=== PATIENT | female | born 1980 | race Caucasian/White ===

== ENCOUNTER 2024-04-23 15:07 | Outpatient (CLI) | payer BC, SELFPAY ==
--- NOTE | ~2024-04-23 | CT_ITS ---
EXAMINATION: CT abdomen pelvis w con DATE: 04/23/2024 15:36 INDICATION: lower flank pain TECHNIQUE: Computed tomography (CT) of the abdomen and pelvis was performed with 100 mL Omnipaque-350 intravenous contrast. Automated exposure control and iterative reconstruction technique were employe d. The dose-length product was 603.30 mGy-cm. COMPARISON: None. FINDINGS: Lower thorax: Mild dependent atelectasis. Liver: Subcentimeter right lobe hypodensity, too small to characterize, likely cyst or hemangioma. 9 mm simple cyst in the inferior right liver lobe. Biliary/Gallbladder: Gallbladder is normal. No bile duct dilation. Pancreas: No mass or duct dilation. Spleen: Normal. Adrenals:No mass. Kidneys: No suspicious mass, obstructing stone, or hydronephrosis. 2 mm nonobstructing right midpole calcification. Right mid/lower pole hypodensities, too small to characterize but most likely represen t cysts. GI tract: Mild distal esophageal and gastric wall edema No small or large bowel dilation. Tiny append icolith in an otherwise normal-appearing appendix Mesentery/Peritoneum: No ascites, mass, or free air. Retroperitoneum: No mass. Pelvis: Partially distended urinary bladder, mild bladder wall stranding. Normal uterus. Normal left ovary. 1.8 cm indeterminate density right ovarian hypodensity. Prominent pelvic veins, particularly o n the left. Soft Tissues: Small fat-containing uncomplicated helical hernia Bones: No acute osseous finding. IMPRESSION: Mild esophagitis/gastritis. Nonobstructive right nephrolithiasis. No CT evidence of obstructive uropathy. Mild bladder wall stranding, may represent cystitis, correlate with urinalysis. Nonsimple 1.8 cm right ovarian hypodensity, likely proteinaceous or hemorrhagic cyst, consider pelvic ultrasound for further evaluation. Prominent pelvic veins, greater on the left as can be seen with pelvic congestion. Correlate clinical ly for persistent dull pelvic pain lasting > 6 months, dysmenorrhea, dyspareunia, postcoital ache, an d urinary symptoms. Reviewed, dictated and finalized at location K. IMPRESSION: Mild esophagitis/gastritis. Nonobstructive right nephrolithiasis. No CT evidence of obstructive uropathy. Mild bladder wall stranding, may represent cystitis, correlate with urinalysis. Nonsimple 1.8 cm right ovarian hypodensity, likely proteinaceous or hemorrhagic cyst, consider pelvic ultrasound for further evaluation. Prominent pelvic veins, greater on the left as can be seen with pelvic congesti on. Correlate clinically for persistent dull pelvic pain lasting > 6 months, dy smenorrhea, dyspareunia, postcoital ache, and urinary symptoms.
== END 2024-04-23 15:08 | disposition home or self-care (01) ==
LOC: ANHIMG 15:14
PROVIDERS: PCP Internal Medicine; Visit Provider Obstetrics & Gynecology
DX: N20.0 Calculus of kidney (principal); R93.89 Abnormal findings on diagnostic imaging of other specified body structures; R10.30 Lower abdominal pain, unspecified
CPT/HCPCS: 74177; Q9967

== ENCOUNTER 2024-10-22 14:54 | Outpatient (CLI) | payer BC, SELFPAY ==
--- NOTE | ~2024-10-22 | MM_ITS ---
EXAMINATION: MM screening lynds[place] BI w [place] HISTORY: Screening TECHNIQUE: Craniocaudal and mediolateral oblique 3-D tomosynthesis images were obtained and synthetic 2-D images were generated. CAD analysis was submitted and interpreted. COMPARISON: 06/12/2012 BREAST PARENCHYMAL COMPOSITION: There is a focal asymmetry laterally in the left, best seen on CC vie w. Dense: The breasts are heterogeneously dense, which may obscure small masses FINDINGS: There is a focal asymmetry laterally in the left, best seen on CC view. There is asymmetry in the upper outer quadrant of the right breast, middle-posterior depth. There are no suspicious calc ifications or architectural distortion. IMPRESSION: 1. Bilateral breast asymmetries. 2. Additional mammographic views and possible breast ultrasound are recommended. BI-RADS Category 0: Incomplete: Needs additional imaging evaluation. Reviewed, dictated and finalized at location B. IMPRESSION: 1. Bilateral breast asymmetries. 2. Additional mammographic views and possible breast ultrasound are recommended . BI-RADS Category 0: Incomplete: Needs additional imaging evaluation.
--- OUTSIDE RECORDS SUMMARY | 2024-10-22 16:50 | XMS_ITS | Clinical Summary ---
Author Organization [facility] Address [address] [place] [address] Phone Care Team Providers Care Polymer Tester Name Role Phone BAN BAKER MD Primary Care Provider LEANA PEÑA DO Unavailable [phone] Reason for Visit and Chief Complaint The Chief Complaint is: SORE THROAT, SOB, AND CHILLS SINCE LAST NIGHT Plan of Treatment - The options include close observation - Last Documented On 08/28/2020 1:13PM ; [facility] - Continue current medication - Last Documented On 08/28/2020 1:13PM ; [facility] Rapid COVID testing performed today and was negative. Patient advised that they may return to work/school when fever free for 24 hours and symptoms have improved. Call with development of additional or worsening symptoms. Go to ED with severe respiratory symptoms. - Last Documented On 08/28/2020 1:13PM ; [facility] Assessments Includes: Assessments from this encounter No Assessments Recorded Medical Equipment - Implanted Devices Includes: Current Devices No Medical Equipment Recorded Medications Administered Includes: Administered Medications from this encounter No Administered Medications Recorded Vital Signs Includes: Vital Signs from this encounter Vital Name 08/28/2020 11:54A Pulse Rate-Sitting (bpm) 77 Temp-Oral (F) 98.2 Oxygen Saturation (%) 96 Last Documented: On 08/28/2020 11:54A M ; [facility] Results Includes: Results discussed during this encounter Group A strep [facility] Ordered by MELONIE GARAY on 08/08 Collected: Reported: 08/28/2020 11:58 Last Documented On 11:59AM ; [facility] Reviewed on 08/28/2020; All test results are final unless otherwise noted. Rapid Strep NEG N (Normal) Last Documented On 1 11:59AM ; [facility] LOT # AND EXP. DATE [id number] 06/04/2022 N (Normal) Last Documented On 1 11:59AM ; [facility] INT. QC ACCEPTABLE? N (Normal) Last Documented On 1 11:59AM ; [facility] Rapid [facility] Test [facility] Ordered by MELONIE GARAY on 08/08 Collected: Reported: 08/28/2020 12:03 Last Documented On 1 12:03PM ; [facility] Reviewed on 08/28/2020; All test results are final unless otherwise noted. Rapid COVId NEG N (Normal) Last Documented On 1 12:03PM ; [facility] Int. QC Acceptable N (Normal) Last Documented On 1 12:03PM ; [facility] Lot # and Exp. Date [id number] 11/09/2020 N (Normal) Last Documented On 1 12:03PM ; [facility] History of Present Illness Includes: History of Present Illness from this encounter HPI JON MUSA is a 40 year old female. - Allergy list reviewed - Medication reconciliation performed - Chills - Not feeling tired - Not feeling poorly (malaise) - No fever - No headache - No sinus pain - No swollen glands in the neck - Sore throat - No ear symptoms - No earache - No nasal discharge - No postnasal drip - No nasal passage blockage (stuffiness) - No sneezing - No chest pain or discomfort - Not feeling congested in the chest - No shortness of breath - No cough - Not coughing up sputum - No wheezing - Normal appetite - No nausea - No vomiting - No abdominal pain - No diarrhea - No myalgias - No anosmia - No taste disturbances - Not unpleasantly altered - No skin symptoms Jon is a 40-year-old female patient that presented to the respiratory clinic for sore throat and chills that started last night. She reports chronic shortness of breath due to history of asthma. No known exposure to COVID. She has not tried any OTC medications for symptoms. Social History No Social History Recorded - Smoking Status Unknown Procedures and Surgical History Includes: Procedures from this encounter Procedures Code Diagnosis Performing Provider Service Location Service Date the options include antihistamines as needed per product instructions Last Documented On 1 1:07PM ; [facility] Pt to use OTC fever/pain product as need ed per product instruction.~ Last Documented On 1 1:07PM ; [facility] Discussed with family that c urrent strep testing is NEGATIVE. Pt /family with be notified if further testing reveals positive strep pharyngitis. Discussed with pt /family the etiology, natural course, possible complications, and treatment options for pharyngitis. Recommended OTC therapy with pain/fever control products, topical products (lozenges/sprays/gargles) as needed per optical lens manufacturing tech's recommendation. Recommended for pt/ family to call/return to office with follow up if pt persits with greater than 5 days of symptoms, worsens, or as otherwise directed. Discussed with pt / family that is pt contagious until fever free for at least 24 hours. Return to activities when pt feels well and fever free for 24 hours. Observe pt contacts for signs/symptoms of illness Last Documented On 1 1:07PM ; [facility] plan of care reviewed and agreed to Last Documented On 1 1:07PM ; [facility] patient to call if symptoms worsen or not improved to update patient's status as needed Last Documented On 1 1:07PM ; [facility] review of medications documented 1160F Last Documented On 1 11:54AM ; [facility] Medical History Includes: Medical History addressed during this encounter Description Last Updated No exposure to a contagious disease 08/08 Last Documented On 1 1:13PM ; [facility] Not taking OTC medications 08/28/2020 Last Documented On 1 1:13PM ; [facility] Family History Includes: Family History addressed during this encounter No Family History Recorded Review of Systems Includes: Review of Systems from this encounter Systemic: No systemic symptoms and no fever. Head: No headache. Otolaryngeal: No earache, no nasal discharge, and no sore throat. Cardiovascular: No chest pain or discomfort. Pulmonary: No cough and no wheezing. Gastrointestinal: No vomiting, no abdominal pain, and no diarrhea. Skin: No skin lesions. Mental Status Includes: Mental Status from this encounter No Mental Status Recorded Functional Status Includes: Functional Status from this encounter No Functional Status Recorded Physical Exam Includes: Physical Exam from this encounter Encounters Encounter Provider Location Date Check-In Time Check-Out Time Diagnosis SICK VISIT MELONIE KYLEP-C [facility] 1 11:30AM 12:03PM Insurance Includes: Active Insurance Policies Plan Name Member ID Group # Subscriber Relationship Effect mckenzie Dates 1 - [facility] [id number] HIEN MUSA Self Clinical Notes Includes: Clinical Notes from this encounter No Clinical Notes Recorded
--- OUTSIDE RECORDS SUMMARY | 2024-10-22 16:50 | XMS_ITS ---
Author Organization [facility] Address [address] [place] [address] Phone Care Team Providers Care Auto Parts Delivery Driver Name Role Phone BAN BAKER MD Primary Care Provider LEANA PEÑA DO [phone] Plan of Treatment Findings Encounter Date Continue current medication SICK VISIT with ZACKERY CAIN-Maximiliano 08/28/2020 Last Documented On 1 1:13PM ; [facility] The options include close observation SI CK VISIT with MELONIE CAIN-Maximiliano 08/28/2020 Last Documented On 1 1:13PM ; [facility] Assessments Includes: Assessments for all patient encounters No Assessments Recorded Medical Equipment - Implanted Devices Includes: Current and historical Devices No Medical Equipment Recorded Medications Administered Includes: Administered Medications in patient's chart No Administered Medications Recorded Results Includes: Results from 10/23/2023 through 10/22/2024 No Results Recorded For Specified Dates History of Present Illness History of Present Illness not supported for this document type No History of Present Illness Recorded Social History No Social History Recorded - Smoking Status Unknown Medical History Includes: Medical History in patient's chart Description Last Updated No exposure to a contagious disease 08/08 Last Documented On 1 1:13PM ; [facility] Not taking OTC medications 08/28/2020 Last Documented On 1 1:13PM ; [facility] Family History Includes: Family History in patient's chart No Family History Recorded Review of Systems Review of Systems not supported for this document type No Review of Systems Recorded Mental Status No Mental Status Recorded Functional Status No Functional Status Recorded Physical Exam Physical Exam not supported for this document type No Physical Exam Recorded Insurance Includes: Active Insurance Policies Plan Name Member ID Group # Subscriber Relationship Effect mckenzie Dates 1 - [facility] [id number] 1 [id number] HIEN Coats Clinical Notes Includes: Signed Clinical Notes starting from 08/26/2022 No Clinical Notes Recorded
--- OUTSIDE RECORDS SUMMARY | 2024-10-22 16:50 | XMS_ITS | Clinical Summary ---
Author Organization [facility] Address [address] [place] [address] Care Team Providers Care Wagon Driver Salesperson Name Role Phone Ho Soni MD Primary Care Provider [phone] Allergies Active Allergy Reactions Criticality Noted Date Comments Codeine Dizziness,Nausea only Low Medications acetaminophen (TYLENOL) 325 mg tablet Take 2 tablets (650 mg total) by mouth every 6 (six) hours as needed for pain Active ketorolac (TORADOL) 10 mg tablet Take 1 tablet (10 mg total) by mouth every 6 (six) hours as needed for pain 12 tablet 4 Active oxyCODONE (ROXICODONE) 5 mg immediate release tabletIndicati ons:Pain Take 1 tablet (5 mg total) by mouth every 6 (six) hours as needed for pain 20 tablet 4 Active senna-docusate (PERICOLACE) 8.6-50 mg Take 1 tablet by mouth 2 (two) times a day as needed for constipation 30 tablet 4 Active ondansetron (ZOFRAN) 4 mg tablet Take 1 tablet (4 mg total) by mouth every 8 (eight) hours as needed for nausea or vomiting 15 tablet 4 Active methylPREDNISo lone (MEDROL DOSEPACK) 4 mg Dosepack Use as directed by package instructions 21 tablet 5 Active methylPREDNISo lone (MEDROL DOSEPACK) 4 mg Dosepack Use as directed by package instructions 21 tablet 5 025 Discontin ued(Reord er) Active Problems Problem Noted Date Diagnosed Date Recurrent dislocation of left shoulder Myasthenia gravis 11/17/2011 Encounters Date Type Department Care Team Description 10/14/2024 1:15 PM CDT Office Visit [facility] [address] [place] [address] [facility] [address] [place] [address] [place] [address] Cony Alas MD Instability of left shoulder joint (Primary Dx); Status post orthopedic surgery, follow-up exam; Recurrent dislocation of left shoulder 10/14/2024 12:45 PM CDT - 10/14/2024 11:59 PM CDT Hospital Encounter [facility] [address] [place] [address] Status post orthopedic surgery, follow-up exam Discharge Disposition: Discharge to home or self care 09/18/2024 Telephone [facility] [address] [place] [address] [facility] [place] [address] [place] [address] Cony Alas MD 09/02/2024 11:45 AM EXTRUDER Office Visit [facility] [address] [place] [address] [facility] [place] [address] [place] [address] Cony Alas MD Instability of left shoulder joint (Primary Dx); Status post orthopedic surgery, follow-up exam 09/02/2024 11:30 AM EXTRUDER - 09/02/2024 11:59 PM EXTRUDER Hospital Encounter [facility] ([facility] [address] [place] [address] Status post orthopedic surgery, follow-up exam Discharge Disposition: Discharge to home or self care 07/29/2024 9:30 AM EXTRUDER Office Visit [facility] [address] [place] [address] [facility] [place] [address] [place] [address] Cony Alas MD Recurrent dislocation of left shoulder (Primary Dx); Instability of left shoulder joint; Status post orthopedic surgery, follow-up exam 07/29/2024 8:45 AM EXTRUDER - 07/29/2024 11:59 PM EXTRUDER Hospital Encounter [facility] [address] [place] [address] Status post orthopedic surgery, follow-up exam Discharge Disposition: Discharge to home or self care from Last 3 Months Surgical History Surgery Date Site/Laterality Comments THYMECTOMY 08/07/1995 - 08/06/1996 Thymectomy - (Added by KRYSTINA Conv) BREAST LUMPECTOMY Left benign CERVICAL BIOPSY W/ LOOP ELEC TRODE EXCISION COLONOSCOPY ESOPHAGOGASTRODUODENOSCOPY Medical History Medical History Date Comments Personal history of other di seases of the nervous system and sense organs History of myasthe jimena gravis - (Added by KRYSTINA Conv) Thyrotoxicosis without thyroid storm Hyperthyroidism - (Added by KRYSTINA Conv) Shoulder dislocation Postoperative delirium states wa kes up freaking out from all surgeries PONV (postoperative nausea and vomiting) nausea Myasthenia gravis (HCC) Asthma rare, well contr olled Family History Medical History Relation Name Comments Anesthesia problems Neg Hx Social History Tobacco Use Types Packs/Day Years Used Date Smoking Tobacco: Former Cigarettes 0.5 8 1 996 - 2003 Smokeless Tobacco: Never Tobacco Cessation:Counseling Given: Not Answered AUDIT-C Answer Date Recorded Q1: How often do you have a drink containing alc ohol? Monthly or less 06/27/2024 Q2: How many drinks containi ng alcohol do you have on a typical day when you are drinking? 1 or 2 06/27/2024 Q3: How often do you have si x or more drinks on one occasion? Never 06/27/2024 Personal Safety Answer Date Recorded Have you ever been in or are you currently in a harmful physical or emotional relationship or is someone making you feel afraid or unsafe? Denies 07/11/2024 Comments No Sex and Gender Information Value Date Recorded Sex Assigned at Not on file Legal Sex Female 2:34 AM EXTRUDER Gender Identity Female 06/04/2024 11:08 AM CDT Sexual Orientation Straight 06/04/2024 11 :08 AM CDT Obstetrics History Last Filed Vital Signs Vital Sign Reading Time Taken Comments Blood Pressure 103/63 07/11/2024 2:15 PM EXTRUDER Pulse 65 07/11/2024 2:20 PM EXTRUDER Temperature 36 C (96.8 F) 07/11/2024 1:13 PM EXTRUDER Respiratory Rate 18 07/11/2024 2:20 PM EXTRUDER Oxygen Saturation 94% 07/11/2024 2:20 PM EXTRUDER Inhaled Oxygen Concentration - - Weight 78.9 kg (173 lb 14.4 oz) 07/11/2024 9:10 AM EXTRUDER Height 157.5 cm (5' 2 ) 07/11/2024 9:10 AM EXTRUDER Body Mass Index 31.81 07/11/2024 9:10 AM EXTRUDER Plan of Treatment Health Maintenance Due Date Last Done Comments Breast Cancer Screening-Mammogram 1978 Cervical Cancer Screening 1978 Colon Cancer Screening-Colonoscopy 1978 Depression Screening 1978 Hepatitis C Screening 1978 DTaP/Tdap/Td Vaccine (1 - Tdap) 1989 Hepatitis B Screening 1996 Regular Well Visit/Exam 18-64 1996 Influenza Vaccine (#1) 2024 HPV Vaccines Aged Out No longer eligi ble based on patient's age to complete this topic Pneumococcal vaccine <65 Aged Out No longer eligible based on patient's age to complete this topic Medical Devices Implanted Type Area Activities Therapist Device Identifier Shelf Expiration Date Model / Serial / Lot [employer] Low Profile Screws 4mm 36mm Cannulated Long Thread Screw Bone [id number] - [id number] Implanted:Qty: 1 on 07/11/2024 by Cony Alas MD at [facility] Left: Shoulder [employer] [id number] / / [employer] Low Profile Screws 4mm 36mm Cannulated Long Thread Screw Bone [id number] - [id number] Implanted:Qty: 1 on 07/11/2024 by Cony Alas MD at [facility] Left: Shoulder [employer] [id number] / / Procedures Procedure Name Priority Date/Time Associated Diagnosis Comments XR SHOULDER LEFT 2 OR MORE VIEWS Schedule Routine, Read Routine (OP Routine) 10/14/2024 1:06 PM CDT Status post orthopedic surgery, follow-up exam XR SHOULDER LEFT 2 OR MORE VIEWS Schedule Routine, Read Routine (OP Routine) 09/02/2024 12:09 PM EXTRUDER Status post orthopedic surgery, follow-up exam XR SHOULDER LEFT 2 OR MORE VIEWS Schedule Routine, Read Routine (OP Routine) 07/29/2024 9:03 AM EXTRUDER Status post orthopedic surgery, follow-up exam from Last 3 Months Results * XR Shoulder Left 2 or More Views (10/14/2024 1:06 PM CDT) Anatomical Region Laterality Modality Upper Extremities, Shoulder Left Comp uted Radiography 10/14/2024 1:09 PM CDT Impressions 10/14/2024 1:09 PM CDT 1. Unchanged, internally fixated anterior left glenoid augmentation. Electronically signed by: Vitor Dewitt M.D. Narrative 10/14/2024 1:09 PM CDT EXAMINATION: XR SHOULDER LEFT 2 OR MORE VIEWS HISTORY: Left shoulder instability s/p Latarjet FINDINGS: 2 view examination of the left shoulder is compared with a study dated 09/02/2024. There is no change in an internally fixated anterior glenoid augmentation using coracoid transfer. This is stabilized with 2 lag screws. Glenohumeral and acromioclavicular joint spaces and alignment are normal. Procedure Note Vitor Dewitt MD - 10/14/2024 EXAMINATION: XR SHOULDER LEFT 2 OR MORE VIEWS HISTORY: Left shoulder instability s/p Latarjet FINDINGS: 2 view examination of the left shoulder is compared with a study dated 09/02/2024. There is no change in an internally fixated anterior glenoid augmentation using coracoid transfer. This is stabilized with 2 lag screws. Glenohumeral and acromioclavicular joint spaces and alignment are normal. IMPRESSION: 1. Unchanged, internally fixated anterior left glenoid augmentation. Electronically signed by: Vitor Dewitt M.D. Cony Alas MD IM XR PROCEDURES Fin al Result * XR Shoulder Left 2 or More Views (09/02/2024 12:09 PM EXTRUDER) Anatomical Region Laterality Modality Upper Extremities, Shoulder Left Comp uted Radiography 09/02/2024 12:1 7 PM EXTRUDER Impressions 09/02/2024 12:17 PM EXTRUDER Healing, instrumented left anteroinferior glenoid augmentation with coracoid transfer. Electronically signed by: Mina Mckeon M.D. Narrative 09/02/2024 12:17 PM EXTRUDER EXAMINATION: XR SHOULDER LEFT 2 OR MORE VIEWS HISTORY: 07/29/2024 COMPARISON: 07/29/2024 FINDINGS: Again seen is an instrumented left Latarjet coracoid transfer, with increased sclerosis along the base suggestive of healing changes. Instrumentation is intact and unchanged in position. Acromioclavicular and glenohumeral joint spaces are preserved. Procedure Note Mina Mckeon MD - 09/02/2024 EXAMINATION: XR SHOULDER LEFT 2 OR MORE VIEWS HISTORY: 07/29/2024 COMPARISON: 07/29/2024 FINDINGS: Again seen is an instrumented left Latarjet coracoid transfer, with increased sclerosis along the base suggestive of healing changes. Instrumentation is intact and unchanged in position. Acromioclavicular and glenohumeral joint spaces are preserved. IMPRESSION: Healing, instrumented left anteroinferior glenoid augmentation with coracoid transfer. Electronically signed by: Mina Mckeon M.D. Cony Alas MD IMG XR PROCEDURES Fin al Result * XR Shoulder Left 2 or More Views (07/29/2024 9:03 AM EXTRUDER) Anatomical Region Laterality Modality Upper Extremities, Shoulder Left Comp uted Radiography 07/29/2024 9:09 AM EXTRUDER Impressions 07/29/2024 9:09 AM EXTRUDER Unchanged left anteroinferior glenoid augmentation. Electronically signed by: Mina Mckeon M.D. Narrative 07/29/2024 9:09 AM EXTRUDER EXAMINATION: XR SHOULDER LEFT 2 OR MORE VIEWS HISTORY: Pre-Surgery or Post-Surgery Health Examination COMPARISON: 07/11/2024 FINDINGS: Postsurgical changes are again seen from left anteroinferior glenoid augmentation with coracoid transfer transfixed by 2 intact compression screws. Soft tissue gas has resolved. There is no evidence of acute fracture. Mild left acromioclavicular osteoarthritis. Glenohumeral joint space is preserved. Procedure Note Mina Mckeon MD - 07/29/2024 EXAMINATION: XR SHOULDER LEFT 2 OR MORE VIEWS HISTORY: Pre-Surgery or Post-Surgery Health Examination COMPARISON: 07/11/2024 FINDINGS: Postsurgical changes are again seen from left anteroinferior glenoid augmentation with coracoid transfer transfixed by 2 intact compression screws. Soft tissue gas has resolved. There is no evidence of acute fracture. Mild left acromioclavicular osteoarthritis. Glenohumeral joint space is preserved. IMPRESSION: Unchanged left anteroinferior glenoid augmentation. Electronically signed by: Mina Mckeon M.D. Cony Alas MD IMG XR PROCEDURES Fin al Result from Last 3 Months Insurance [facility] OOS Care Teams Wagon Driver Salesperson Relationship Specialty Start Date End Date Ho Soni MD PCP - General Internal Medicine 10/01/18
--- OUTSIDE RECORDS SUMMARY | 2024-10-22 16:51 | XMS_ITS | Referral Summary ---
Author Organization [facility] Address [address] [place] [id number] Care Team Providers Care Causticiser Name Role Phone Ho Soni MD Primary Care Provider [phone] Encounters Date Type Department Care Team Description 10/14/2024 12:45 PM CDT - 10/14/2024 11:59 PM CDT Hospital Encounter [facility] ([facility]) [address] [place] [id number] Status post orthopedic surgery, follow-up exam Discharge Disposition: Discharge to home or self care 10/14/2024 1:15 PM CDT Office Visit [facility] Orth[facility] [address] [place] [address] [address] [place] [address] [place] [address] Cony Alas MD Instability of left shoulder joint (Primary Dx); Status post orthopedic surgery, follow-up exam; Recurrent dislocation of left shoulder 09/18/2024 Telephone [facility] [address] [place] [address] 12[address] [place] [address] [place] [address] Cony Alas MD 09/02/2024 11:30 AM SENIOR BOOKKEEPER - 09/02/2024 11:59 PM SENIOR BOOKKEEPER Hospital Encounter [facility] ([facility]) [address] [place] [id number] Status post orthopedic surgery, follow-up exam Discharge Disposition: Discharge to home or self care 09/02/2024 11:45 AM SENIOR BOOKKEEPER Office Visit [facility] Surgery [address] [place] [address] 12th [place] [address] [place] [address] Cony Alas MD Instability of left shoulder joint (Primary Dx); Status post orthopedic surgery, follow-up exam 07/29/2024 8:45 AM SENIOR BOOKKEEPER - 07/29/2024 11:59 PM SENIOR BOOKKEEPER Hospital Encounter [facility] [address] [place] [address] Status post orthopedic surgery, follow-up exam Discharge Disposition: Discharge to home or self care 07/29/2024 9:30 AM SENIOR BOOKKEEPER Office Visit [facility] [address] [facility] [address]th [place] [address] [place] [address] Cony Alas MD Recurrent dislocation of left shoulder (Primary Dx); Instability of left shoulder joint; Status post orthopedic surgery, follow-up exam from Last 3 Months Allergies Active Allergy Reactions Criticality Noted Date [...] directed by package instructions 21 tablet 5 03/10/2 025 Discontin ued(Reord er) Active Problems Problem Noted Date Diagnosed Date Recurrent dislocation of left shoulder Myasthenia gravis 11/17/2011 Social History Tobacco Use Types Packs/Day Years [...] on file Legal Sex Female 2:34 AM SENIOR BOOKKEEPER Gender Identity Female 06/04/2024 11:08 AM CDT Sexual Orientation Straight 06/04/2024 11 :08 AM CDT Last Filed Vital Signs Vital Sign Reading Time Taken Comments Blood Pressure 103/63 07/11/2024 2:15 PM SENIOR BOOKKEEPER Pulse 65 07/11/2024 2:20 PM SENIOR BOOKKEEPER Temperature 36 C (96.8 F) 07/11/2024 1:13 PM SENIOR BOOKKEEPER Respiratory Rate 18 07/11/2024 2:20 PM SENIOR BOOKKEEPER Oxygen Saturation 94% 07/11/2024 2:20 PM SENIOR BOOKKEEPER Inhaled Oxygen Concentration - - Weight 78.9 kg (173 lb 14.4 oz) 07/11/2024 9:10 AM SENIOR BOOKKEEPER Height 157.5 cm (5' 2 ) 07/11/2024 9:10 AM SENIOR BOOKKEEPER Body Mass Index 31.81 07/11/2024 9:10 AM SENIOR BOOKKEEPER Plan of Treatment Not on file Medical Devices Implanted Type Area Refrigerator Repairman Device Identifier Shelf Expiration Date Model / Serial / Lot [employer] Low Profile Screws 4mm 36mm Cannulated Long Thread Screw Bone [id number] - [id number] Implanted:Qty: 1 on 07/11/2024 by Cony Alas MD at [facility] Left: Shoulder [employer] [id number]- 36 / / [employer] Low Profile Screws 4mm 36mm Cannulated Long Thread Screw Bone [id number] - [id number] Implanted:Qty: 1 on 07/11/2024 by Cony Alas MD at [facility] Left: Shoulder [employer] [id number] 36 / / Procedures Procedure Name Priority Date/Time Associated Diagnosis Comments XR SHOULDER LEFT 2 OR MORE VIEWS Schedule Routine, Read Routine (OP Routine) 10/14/2024 1:06 PM CDT Status post orthopedic surgery, follow-up exam XR SHOULDER LEFT 2 OR MORE VIEWS Schedule Routine, Read Routine (OP Routine) 09/02/2024 12:09 PM SENIOR BOOKKEEPER Status post orthopedic surgery, follow-up exam XR SHOULDER LEFT 2 OR MORE VIEWS Schedule Routine, Read Routine (OP Routine) 07/29/2024 9:03 AM SENIOR BOOKKEEPER Status post orthopedic surgery, follow-up exam from [...] by: Vitor Dewitt M.D. Cony Alas MD IMG XR PROCEDURES Fin al Result * XR Shoulder Left 2 or More Views (09/02/2024 12:09 PM SENIOR BOOKKEEPER) Anatomical Region Laterality Modality Upper Extremities, Shoulder Left Comp uted Radiography 09/02/2024 12:1 7 PM SENIOR BOOKKEEPER Impressions 09/02/2024 12:17 PM SENIOR BOOKKEEPER Healing, instrumented left anteroinferior glenoid augmentation with coracoid transfer. Electronically signed by: Mina Mckeon M.D. Narrative 09/02/2024 12:17 PM SENIOR BOOKKEEPER EXAMINATION: XR SHOULDER LEFT 2 OR MORE [...] by: Mina Mckeon M.D. Cony Alas MD G XR PROCEDURES Fin al Result * XR Shoulder Left 2 or More Views (07/29/2024 9:03 AM SENIOR BOOKKEEPER) Anatomical Region Laterality Modality Upper Extremities, Shoulder Left Comp uted Radiography 07/29/2024 9:09 AM SENIOR BOOKKEEPER Impressions 07/29/2024 9:09 AM SENIOR BOOKKEEPER Unchanged left anteroinferior glenoid augmentation. Electronically signed by: Mina Mckeon M.D. Narrative 07/29/2024 9:09 AM SENIOR BOOKKEEPER EXAMINATION: XR SHOULDER LEFT 2 OR MORE [...] al Result from Last 3 Months Insurance [employer] OOS [employer] ACCESS [employer] O[employer] Care Teams Causticiser Relationship Specialty Start Date End Date Ho Soni MD PCP - General Internal Medicine 10/01/18
--- OUTSIDE RECORDS SUMMARY | 2024-10-22 16:51 | XMS_ITS | Data Portability ---
Author Organization [facility] Address [address] [place] [address] Care Team Providers Care Inward Toll Operator Name Role Phone BAN BAKER Primary Care Provider [phone] Assessment Encounter Date Assessment Date Assessment LastModified by Organization Details LastModified Time 08/11/2021 08/11/2021 Annual gynecological exam performed. Patient will come back in a year unless there are new symptoms. Not available 08/11/2021 13:48:52 04/18/2024 04/18/2024 Annual gynecological exam performed. Patient will come back in a year unless there are new symptoms. [email or web address] Not available 04/18/2024 17:04:36 Plan of Treatment Reminders Order Date Submit Date Provider Last Modified By Organization Details Last Modified Time Details Appointments None recorded. Lab CBC w/ auto diff 2023 024 [facility] (Lab), [address], [place], [address], 4 12:29:49 CMP, serum or plasma 2023 024 [facility] (Lab), [address] [place], [address], 4 12:29:50 lipid panel, blood 2023 024 [facility] (Lab), [address] [place], [address], 4 12:29:49 TSH, serum or plasma 2023 024 [facility] (Lab), [address], [place], [address], 4 12:29:50 25-hydroxyv itamin D2 + 25-hydroxyv itamin D3, QN, serum or plasma 2023 024 [facility] (Lab), [address], [place], [address], 4 12:29:51 test, urine [address], [address], [address], [place], [address], 2 16:32:50 CBC w/ auto diff 2021 022 [facility] (Lab), [address], [place], [address], 2 03:16:59 lipid panel, blood 2021 022 [facility] (Lab), [address], [place], [address], 2 03:17:00 CMP, serum or plasma 2021 022 [facility] (Lab), [address], [place], [address], 2 03:17:01 HbA1c (hemoglobin A1c), blood 2021 022 [facility] (Lab), [address] [place], [address], 2 03:17:02 vitamin D, 25-hydroxy, total, serum 2021 022 [facility] (Lab), [address] [place], [address], 2 03:17:04 TSH, serum or plasma 2021 022 [facility] (Lab), [address], [place], [address], 2 03:17:03 Referral None recorded. Procedures None recorded. Surgeries None recorded. Imaging MAMMO, screening, digital, bilateral [address] [facility], [address], [facility], [place], [address], 2 16:32:51 Medication Orders Bactrim DS 800 mg-160 mg tablet 2023 024 [email or web address] [id number], [address], [place], [address], 4 18:07:17 Slynd 4 mg (28) tablet 2021 022 [email or web address] [id number], [address], [place], [address], 4 17:05:53 Slynd 4 mg (28) tablet 2021 022 [email or web address] [id number], [address], [place], [address], 2 16:32:50 triamcinolo ne acetonide 0.1 % topical ointment 2021 022 [id number], [address], [place], [address], 2 14:23:31 Patient TargetsNo targets recorded. Patient InstructionsNo instructions recorded. Reason for Referral None Reported. Results Created Date Observation Date Name Description Value Unit Range Abnormal Flag Note LastModifiedBy Organization Detail LastModifiedTime 08/11/19 22 08/11/2021 CBC W/DIF F WBC 4.8 10'3/ uL 3.6-10 .2 Not Available [facility] (Lab) [address], [place], [address], 08/12/2021 03:16:59 08/11/19 22 08/11/2021 CBC W/DIF F RBC 4.90 10'6/ uL (based on docume nted legal sex) 4.10-5 .30 Not Available [facility] (Lab) [address], [place], [address], 08/12/2021 03:16:59 08/11/19 22 08/11/2021 CBC W/DIF F HGB 14.5 g/dL (based on docume nted legal sex) 11.9-1 5.8 Not Available [facility] (Lab) [address], [place], [address], 08/12/2021 03:16:59 08/11/19 22 08/11/2021 CBC W/DIF F HCT 44.2 % (based on docume nted legal sex) 37.4-4 8.3 Not Available [facility] (Lab) [address], [place], [address], 08/12/2021 03:16:59 08/11/19 22 08/11/2021 CBC W/DIF F MCV 90.0 fL 82.0-9 9.0 Not Available [facility] (Lab) [address], [place], [address], 08/12/2021 03:16:59 08/11/19 22 08/11/2021 CBC W/DIF F MCH 30.0 pg 27.0-3 3.0 Not Available [facility] (Lab) [address] [place], [address], 08/12/2021 03:16:59 08/11/19 22 08/11/2021 CBC W/DIF F MCHC 33.0 g/dL 32.0-3 6.0 Not Available [facility] (Lab) [address] [place], [address], 08/12/2021 03:16:59 08/11/19 22 08/11/2021 CBC W/DIF F RDW 13.0 % 11.0-1 5.0 Not Available [facility] (Lab) [address], [place], [address], 08/12/2021 03:16:59 08/11/19 22 08/11/2021 CBC W/DIF F plt 190 10'3/ uL 150-45 0 Not Available [facility] (Lab) [address], [place], [address], 08/12/2021 03:16:59 08/11/19 22 08/11/2021 CBC W/DIF F MPV 11.8 fL 9.8-12 .7 Not Available [facility] (Lab) [address], [place], [address], 08/12/2021 03:16:59 08/11/19 22 08/11/2021 CBC W/DIF F NRBC's 0.00 % 0 Not Available [facility] (Lab) [address] [facility], [place], [address], 08/12/2021 03:16:59 08/11/19 22 08/11/2021 CBC W/DIF F absolute NRBCs 0.0 10'3/ uL 0 Not Available [facility] (Lab) [address] [facility], [place], [address], 08/12/2021 03:16:59 08/11/19 22 08/11/2021 CBC W/DIF F neutrophils 57.0 % 37.0-7 2.0 Not Available [facility] (Lab) [address], [place], [address], 08/12/2021 03:16:59 08/11/19 22 08/11/2021 CBC W/DIF F lymphocytes 34.0 % 16.0-4 8.0 Not Available [facility] (Lab) [address] [facility], [place], [address], 08/12/2021 03:16:59 08/11/19 22 08/11/2021 CBC W/DIF F monocytes 9.0 % 4.0-14 .0 Not Available [facility] (Lab) [address] [facility], [place], [address], 08/12/2021 03:16:59 08/11/19 22 08/11/2021 CBC W/DIF F eosinophils 0.0 % 0.0-9. 0 Not Available [facility] (Lab) [address] [facility], [place], [address], 08/12/2021 03:16:59 08/11/19 22 08/11/2021 CBC W/DIF F basophils 0.0 % 0.0-2. 0 Not Available [facility] (Lab) [address] [place], [address], 08/12/2021 03:16:59 08/11/19 22 08/11/2021 CBC W/DIF F immature granulocytes 0.0 % no define d refere nce range Not Available [facility] (Lab) [address] [facility], [place], [address], 08/12/2021 03:16:59 08/11/19 22 08/11/2021 CBC W/DIF F absolute neutrophils 2.7 10'3/ uL 1.1-6. 0 Not Available [facility] (Lab) [address] [place], [address], 08/12/2021 03:16:59 08/11/19 22 08/11/2021 CBC W/DIF F absolute lymphocytes 1.7 10'3/ uL 0.7-3. 4 Not Available [facility] (Lab) [address] [place], [address], 08/12/2021 03:16:59 08/11/19 22 08/11/2021 CBC W/DIF F absolute monocytes 0.4 10'3/ uL 0.3-1. 0 Not Available [facility] (Lab) [address] [facility], [place], [address], 08/12/2021 03:16:59 08/11/19 22 08/11/2021 CBC W/DIF F absolute eosinophils 0.0 10'3/ uL 0.0-0. 6 Not Available [facility] (Lab) [address] [facility], [place], [address], 08/12/2021 03:16:59 08/11/19 22 08/11/2021 CBC W/DIF F absolute basophils 0.0 10'3/ uL 0.0-0. 1 Not Available [facility] (Lab) [address] [facility], [place], [address], 08/12/2021 03:16:59 08/11/19 22 08/11/2021 CBC W/DIF F absolute immature granulocytes 0.00 10'3/ uL 0.00-0 .10 022 1:13 AM: P indic ates parti al resul ts on a panel have been relea sed. Addit ional resul ts will follo w. 022 1:13 AM: This resul t has been final verif ied. No addit ional or sandhu ed resul ts are expec fozia. Not Available [facility] (Lab) [address] [facility], [place], [address], 08/12/2021 03:16:59 08/11/19 22 08/11/2021 LIPID PANEL ,AMA (LDL- CALC) total cholesterol 163 mg/dL 0-199 Not Available [facility] (Lab) [address] [facility], [place], [address], 08/12/2021 03:17:00 08/11/1908/11/2021 LIPID PANEL ,AMA (LDL- CALC) triglyceride s 71 mg/dL 0.00-1 50.00 NCEP Refer ence Value s for Trigl yceri ucrtis: Joy l: <150 mg/dL Borde rline High: 150 - 199 mg/dL High: 200 - 499 mg/dL Very High: >/= 500 mg/dL Not Available [facility] (Lab) [address] [facility], [place], [address], 08/12/2021 03:17:00 08/11/19 22 08/11/2021 LIPID PANEL ,AMA (LDL- CALC) HDL cholesterol 54 mg/dL >40 Not Available [facility] (Lab) [address], [place], [address], 08/12/2021 03:17:00 08/11/19 22 08/11/2021 LIPID PANEL ,AMA (LDL- CALC) LDL cholesterol 95 mg/dL 0-99 Cutof f value s recom annette d by the Natio nal Ujlee stero l Educa tion Progr am: SCARLET ABLE: Julee stero l <200 mg/dL LDL <100 mg/dL BORDE RLINE : Julee stero l 200-2 39 mg/dL LDL 101-1 59 mg/dL HIGHE R RISK: Julee stero l >240 mg/dL LDL >160 mg/dL , HDL <40 mg/dL Not Available [facility] (Lab) [address] [facility], [place], [address], 08/12/2021 03:17:00 08/11/19 22 08/11/2021 LIPID PANEL ,AMA (LDL- CALC) non-HDL cholesterol 109 mg/dL no refere nce range A reaso nable goal for non-H DL julee stero l is one that is 30 mg/dL highe r than the LDL julee stero l goal. Not Available [facility] (Lab) [address], [place], [address], 08/12/2021 03:17:00 08/11/19 22 08/11/2021 LIPID PANEL ,AMA (LDL- CALC) chol/HDL ratio 3.0 . 0.0-5. 0 Not Available [facility] (Lab) [address], [place], [address], 08/12/2021 03:17:00 08/11/19 22 08/11/2021 CMP(C OMPRE HENSI VE METAB OLIC PANEL ) sodium 138 mmol/ L 133-14 6 Not Available [facility] (Lab) [address] [facility], [place], [address], 08/12/2021 03:17:01 08/11/19 22 08/11/2021 CMP(C OMPRE HENSI VE METAB OLIC PANEL ) potassium 3.6 mmol/ L 3.5-5. 1 Not Available [facility] (Lab) [address] [facility], [place], [address], 08/12/2021 03:17:01 08/11/19 22 08/11/2021 CMP(C OMPRE HENSI VE METAB OLIC PANEL ) chloride 103 mmol/ L 98-107 Not Available [facility] (Lab) [address] [facility], [place], [address], 08/12/2021 03:17:01 08/11/19 22 08/11/2021 CMP(C OMPRE HENSI VE METAB OLIC PANEL ) carbon dioxide 26 mmol/ L 21-31 Not Available [facility] (Lab) [address] [facility], [place], [address], 08/12/2021 03:17:01 08/11/19 22 08/11/2021 CMP(C OMPRE HENSI VE METAB OLIC PANEL ) anion gap 9 mmol/ L 4-13 Not Available [facility] (Lab) [address] [place], [address], 08/12/2021 03:17:01 08/11/19 22 08/11/2021 CMP(C OMPRE HENSI VE METAB OLIC PANEL ) blood urea nitrogen 11 mg/dL 7-25 Not Available [facility] (Lab) [address] [facility], [place], [address], 08/12/2021 03:17:01 08/11/19 22 08/11/2021 CMP(C OMPRE HENSI VE METAB OLIC PANEL ) creatinine 0.81 mg/dL 0.60-1 .30 Not Available [facility] (Lab) [address] [facility], [place], [address], 08/12/2021 03:17:01 08/11/19 22 08/11/2021 CMP(C OMPRE HENSI VE METAB OLIC PANEL ) egfrcr (CKD-epi 2020) >90 mL/mi n/1.7 3_m2 >=60 Not Available [facility] (Lab) [address] [facility], [place], [address], 08/12/2021 03:17:01 08/11/19 22 08/11/2021 CMP(C OMPRE HENSI VE METAB OLIC PANEL ) calcium 9.8 mg/dL 8.3-10 .5 Not Available [facility] (Lab) [address] [facility], [place], [address], 08/12/2021 03:17:01 08/11/19 22 08/11/2021 CMP(C OMPRE HENSI VE METAB OLIC PANEL ) glucose 83 mg/dL 70-100 Not Available [facility] (Lab) [address] [facility], [place], [address], 08/12/2021 03:17:01 08/11/19 22 08/11/2021 CMP(C OMPRE HENSI VE METAB OLIC PANEL ) protein, total 7.1 g/dL 6.4-8. 3 Not Available [facility] (Lab) [address] [facility], [place], [address], 08/12/2021 03:17:01 08/11/19 22 08/11/2021 CMP(C OMPRE HENSI VE METAB OLIC PANEL ) albumin 4.4 g/dL 3.5-5. 0 Not Available [facility] (Lab) [address] [facility], [place], [address], 08/12/2021 03:17:01 08/11/19 22 08/11/2021 CMP(C OMPRE HENSI VE METAB OLIC PANEL ) ALT 12 units /L 9-43 Not Available [facility] (Lab) [address] [facility], [place], [address], 08/12/2021 03:17:01 08/11/19 22 08/11/2021 CMP(C OMPRE HENSI VE METAB OLIC PANEL ) alkaline phosphatase 45 units /L 34-104 Not Available [facility] (Lab) [address] [facility], [place], [address], 08/12/2021 03:17:01 08/11/19 22 08/11/2021 CMP(C OMPRE HENSI VE METAB OLIC PANEL ) AST 15 units /L 13-39 Not Available [facility] (Lab) [address] [facility], [place], [address], 08/12/2021 03:17:01 08/11/19 22 08/11/2021 CMP(C OMPRE HENSI VE METAB OLIC PANEL ) bilirubin, total 0.5 mg/dL 0.2-1. 2 Not Available [facility] (Lab) [address] [facility], [place], [address], 08/12/2021 03:17:01 08/11/19 22 08/11/2021 HEMOG LOBIN A1C hemoglobin A1C 5.2 % 0-5.6 The Ameri can Diabe darlene [employer] iatio n recom mends that a prima ry goal of thera py toña cmapos be a HBA1C of < 7% and that physi cians toña d reeva luate the treat ment regim en in patie nts with HBA1C value s consi stent ly > 8%. <5.7% Joy l 5.7 - 6.4% Incre ased risk for diabe darlene >=6.5 % Diagn ostic of diabe darlene <7.0% Goal of thera py >8.0% Actio n sugbhumika sted Not Available [facility] (Lab) [address] [facility], [place], [address], 08/12/2021 03:17:02 08/11/19 22 08/11/2021 TSH, REFLE X FREE T4 TSH 1.43 uIU/m L 0.30-5 .33 Not Available [facility] (Lab) [address] [facility], [place], [address], 08/12/2021 03:17:03 08/11/19 22 08/11/2021 VITAM IN D, 25-OH (TOTA L D2/D3 ) vitamin D, 25-hydroxy, total 20.7 NG/mL 30-80 low NOTE: Defic iency : <20 ng/mL Insuf ficie ncy: 20-29 ng/mL Optim um Level : 30-80 ng/mL Possi ble Toxic ity: >80 ng/mL Most patie nts with toxic ity have level s >150 ng/mL . 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 Funga l organ isms morph ologi fay consi stent with Vicky da spp. Elect katy clark giuliano d by Maritza Benavides, CT on 2021 at 12:23 PM ----- ----- ----- ----- ----- ----- ----- ----- ----- ----- ----- ----- ----- ----- ----- ----- ----- ---- HPV RESUL TS: HPV mRNA E6/E7 : No HPV mRNA Detec ofzia NOTE: This high risk HPV mRNA assay detec ts fourt een high- risk HPV types (16, 18, 31, 33, 35, 39, 45, 51, 52, 56, 58, 59, 66, 68) witho ut diffe renti ation . COMME NT: Note: This speci men was revie wed by a Cytot echno logis t and/o r Patho logis t (as indic ated in this repor t) after evalu ation using the Thinp rep Imagi ng Syste m. CLINI ISIDRO INFOR MATIO N: Menst rual Statu s: LMP (if appli cable ): Clini isidro Histo ry/Pr eviou s Pap: Type of Neopl susi (if appli cable ): Signi fican t Clini isidro Findi ngs: Other Histo ry: Hormo winnie (if appli cable ): PAP EDUCA BEV L NOTE: The Pap Test is a scree anish test with an inher ent false negat mckenzie rate. Liqui d-bas ed sampl ing may decre ase, but will not elimi halina, false negat mckenzie resul ts. A negat mckenzie resul t does not precl ude the prese nce and/o r devel opmen t of disea se, since the prese nce of abnor mal cells in the sampl e depen ds on the locat ion of the lesio n and sampl ing techn ique. Ramon nued regul ar scree anish is the best metho d of cance r preve ntion . If repor fozia cytol ogic findi ng do not corre late with physi isidro and/o r histo rical findi ngs, furth er inves tigat ion is recom annette d, as clini fay ca nted. Not Available [facility] (Lab) [address], [place], [address], 08/17/2021 13:25:43 08/11/19 22 08/11/2021 CT/GC (WILLARD) , THINP REP VIAL chlamydia trachomatis, PCR Negati ve negati ve Not Available [facility] (Lab) [address], [place], [address], 08/17/2021 13:25:43 08/11/19 22 08/11/2021 CT/GC (WILLARD) , THINP REP VIAL neisseria gonorrhoeae, PCR Negati ve negati ve Not Available [facility] (Lab) [address], [place], [address], 08/17/2021 13:25:43 08/11/19 22 08/11/2021 TRICH OMONA S VAGIN FERNANDO (RRNA ) trichomonas vaginalis ribosomal RNA (rrna) Negati ve negati ve Not Available [facility] (Lab) [address] [facility], [place], [address], 08/17/2021 13:25:44 09/10/19 22 09/10/2021 pregn sushila test, urine HCG negati ve Not Available [facility] [address], [place], [address], 09/10/2021 16:24:29 04/18/20 24 04/18/2024 CBC W/DIF F WBC 8.4 10'3/ uL 3.5-10 .5 Not Available [facility] (Lab) [address] [facility], [place], [address], 04/19/2024 12:29:49 04/18/20 24 04/18/2024 CBC W/DIF F RBC 4.80 10'6/ uL (based on docume nted legal sex) 3.80-5 .20 Not Available [facility] (Lab) [address], [place], [address], 04/19/2024 12:29:49 04/18/20 24 04/18/2024 CBC W/DIF F HGB 14.0 g/dL (based on docume nted legal sex) 11.6-1 5.4 Not Available [facility] (Lab) [address], [place], [address], 04/19/2024 12:29:49 04/18/20 24 04/18/2024 CBC W/DIF F HCT 42.9 % (based on docume nted legal sex) 34.0-4 5.0 Not Available [facility] (Lab) [address], [place], [address], 04/19/2024 12:29:49 04/18/20 24 04/18/2024 CBC W/DIF F MCV 89.4 fL 80.0-9 9.0 Not Available [facility] (Lab) [address], [place], [address], 04/19/2024 12:29:49 04/18/20 24 04/18/2024 CBC W/DIF F MCH 29.2 pg 27.0-3 4.0 Not Available [facility] (Lab) [address], [place], [address], 04/19/2024 12:29:49 04/18/20 24 04/18/2024 CBC W/DIF F MCHC 32.6 g/dL 32.0-3 5.5 Not Available [facility] (Lab) [address], [place], [address], 04/19/2024 12:29:49 04/18/20 24 04/18/2024 CBC W/DIF F RDW 13.1 % 11.0-1 5.0 Not Available [facility] (Lab) [address], [place], [address], 04/19/2024 12:29:49 04/18/20 24 04/18/2024 CBC W/DIF F plt 314 10'3/ uL 150-40 0 Not Available [facility] (Lab) [address] [place], [address], 04/19/2024 12:29:49 04/18/20 24 04/18/2024 CBC W/DIF F MPV 11.4 fL 8.8-12 .1 Not Available [facility] (Lab) [address], [place], [address], 04/19/2024 12:29:49 04/18/20 24 04/18/2024 CBC W/DIF F NRBC's 0.0 % 0.0 Not Available [facility] (Lab) [address], [place], [address], 04/19/2024 12:29:49 04/18/20 24 04/18/2024 CBC W/DIF F absolute NRBCs 0.0 10'3/ uL no refere nce range establ ished Not Available [facility] (Lab) [address], [place], [address], 04/19/2024 12:29:49 04/18/20 24 04/18/2024 CBC W/DIF F neutrophils 62.2 % 34.0-7 3.0 Not Available [facility] (Lab) [address], [place], [address], 04/19/2024 12:29:49 04/18/20 24 04/18/2024 CBC W/DIF F lymphocytes 27.4 % 15.0-5 0.0 Not Available [facility] (Lab) [address], [place], [address], 04/19/2024 12:29:49 04/18/20 24 04/18/2024 CBC W/DIF F monocytes 7.1 % 1.0-15 .0 Not Available [facility] (Lab) [address], [place], [address], 04/19/2024 12:29:49 04/18/20 24 04/18/2024 CBC W/DIF F eosinophils 1.7 % 0.0-8. 0 Not Available [facility] (Lab) [address] [facility], [place], [address], 04/19/2024 12:29:49 04/18/20 24 04/18/2024 CBC W/DIF F basophils 1.2 % 0.0-2. 0 Not Available [facility] (Lab) [address] [facility], [place], [address], 04/19/2024 12:29:49 04/18/20 24 04/18/2024 CBC W/DIF F immature granulocytes 0.4 % no define d refere nce range Not Available [facility] (Lab) [address] [facility], [place], [address], 04/19/2024 12:29:49 04/18/20 24 04/18/2024 CBC W/DIF F absolute neutrophils 5.3 10'3/ uL 1.5-8. 0 Not Available [facility] (Lab) [address] [facility], [place], [address], 04/19/2024 12:29:49 04/18/20 24 04/18/2024 CBC W/DIF F absolute lymphocytes 2.3 10'3/ uL 1.0-4. 0 Not Available [facility] (Lab) [address] [facility], [place], [address], 04/19/2024 12:29:49 04/18/20 24 04/18/2024 CBC W/DIF F absolute monocytes 0.6 10'3/ uL 0.2-1. 0 Not Available [facility] (Lab) [address] [facility], [place], [address], 04/19/2024 12:29:49 04/18/20 24 04/18/2024 CBC W/DIF F absolute eosinophils 0.1 10'3/ uL 0.0-0. 6 Not Available [facility] (Lab) [address] [facility], [place], [address], 04/19/2024 12:29:49 04/18/20 24 04/18/2024 CBC W/DIF F absolute basophils 0.1 10'3/ uL 0.0-0. 3 Not Available [facility] (Lab) [address] [facility], [place], [address], 04/19/2024 12:29:49 04/18/20 24 04/18/2024 CBC W/DIF F absolute immature granulocytes 0.0 10'3/ uL 0.00-0 .10 2023 6:17 AM: P indic ates parti al resul ts on a panel have been relea sed. Addit ional resul ts will follo w. 2023 6:18 AM: This resul t has been final verif ied. No addit ional or sandhu ed resul ts are expec fozia. Not Available [facility] (Lab) [address] [facility], [place], [address], 04/19/2024 12:29:49 04/18/20 24 04/18/2024 LIPID PANEL ,AMA (LDL- CALC) total cholesterol 230 mg/dL 0-199 high Not Available [facility] (Lab) [address] [facility], [place], [address], 04/19/2024 12:29:49 04/18/2004/18/2024 LIPID PANEL ,AMA (LDL- CALC) triglyceride s 136 mg/dL 0-150 NCEP Refer ence Value s for Trigl yceri curtis: Joy l: <150 mg/dL Borde rline High: 150 - 199 mg/dL High: 200 - 499 mg/dL Very High: >/= 500 mg/dL Not Available [facility] (Lab) [address] [facility], [place], [address], 04/19/2024 12:29:49 04/18/2004/18/2024 LIPID PANEL ,AMA (LDL- CALC) HDL cholesterol 64 mg/dL >40 Not Available [facility] (Lab) [address], [place], [address], 04/19/2024 12:29:49 04/18/2004/18/2024 LIPID PANEL ,AMA (LDL- CALC) LDL cholesterol 140 mg/dL 0-99 high Cutof f value s recom annette d by the Natio nal [employer] t[employer] Progr am: SCARLET ABLE: Julee stero l <200 mg/dL LDL <100 mg/dL BORDE RLINE : Julee stero l 200-2 39 mg/dL LDL 101-1 59 mg/dL HIGHE R RISK: Julee stero l >240 mg/dL LDL >160 mg/dL , HDL <40 mg/dL Not Available [facility] (Lab) [address], [place], [address], 04/19/2024 12:29:49 04/18/2004/18/2024 LIPID PANEL ,AMA (LDL- CALC) non-HDL cholesterol 166 mg/dL no refere nce range A reaso nable goal for non-H DL julee stero l is one that is 30 mg/dL highe r than the LDL julee stero l goal. Not Available [facility] (Lab) [address], [place], [address], 04/19/2024 12:29:49 04/18/2004/18/2024 LIPID PANEL ,AMA (LDL- CALC) chol/HDL ratio 3.6 . 0.0-5. 0 On November 29, 2022, [facility] labor atori stella sandhu ed the equat ion for calcu latin g estim ated low-d ensit y lipop rotei n-cho leste rol (LDL- C) from the Fried lio equat ion to the Josiane rivero/Audrey tai equat ion. This new equat ion is only valid for lipid panel s with trigl yceri curtis < 400 mg/dL . Studi es have demon strat ed that this new equat ion will impro ve the accur acy of LDL-C , espec ially in [place] when LDL-C clifford ntrat ions are relat ively low (< 100 mg/dL ), trigl yceri curtis are eleva fozia, or patie nt is non-f astin g. Refer ences : - Jakub Montes De Oca, Eddi Stephenson , Royer fisher, Leonard Garner, Leonard perdue, Amador brambila , and Leonard Benavides . 2013. Comp ariso n of a Novel Metho d vs the Fried lio Equat ion for Estim ating Low-D ensit y Lipop rotei n Julee stero l Level s from the Stand nish Lipid Profconstanza le. CARMEN: The Journ al of the Ameri can Medic al Assoc iatio n 310 (19): 2060- . - Tommy pak V, Raquel J, Avinash ar A, Patric M, Ambar e R, Vicky pak E, Trung brambila RS, Kennedy SR, Josiane rivero SS. Fast ing Versu s Nonfa sting and Low-D ensit y Lipop rotei n Julee stero l Accur acy. Circu latio n. 2017Aug 08;137 (1):1 0-19. Not Available [facility] (Lab) [address] [place], [address], 04/19/2024 12:29:49 04/18/20 24 04/18/2024 CMP(C OMPRE HENSI VE METAB OLIC PANEL ) sodium 138 mmol/ L 133-14 6 Not Available [facility] (Lab) [address] [place], [address], 04/19/2024 12:29:50 04/18/20 24 04/18/2024 CMP(C OMPRE HENSI VE METAB OLIC PANEL ) potassium 4.0 mmol/ L 3.5-5. 1 Not Available [facility] (Lab) [address] [place], [address], 04/19/2024 12:29:50 04/18/20 24 04/18/2024 CMP(C OMPRE HENSI VE METAB OLIC PANEL ) chloride 103 mmol/ L 98-107 Not Available [facility] (Lab) [address] [place], [address], 04/19/2024 12:29:50 09/12/20 24 04/18/2024 CMP(C OMPRE HENSI VE METAB OLIC PANEL ) carbon dioxide 26 mmol/ L 21-31 Not Available [facility] (Lab) [address] [facility], [place], [address], 04/19/2024 12:29:50 04/18/20 24 04/18/2024 CMP(C OMPRE HENSI VE METAB OLIC PANEL ) anion gap 9 mmol/ L 4-13 Not Available [facility] (Lab) [address] [facility], [place], [address], 04/19/2024 12:29:50 04/18/20 24 04/18/2024 CMP(C OMPRE HENSI VE METAB OLIC PANEL ) blood urea nitrogen 18 mg/dL 7-25 Not Available [facility] (Lab) [address] [facility], [place], [address], 04/19/2024 12:29:50 04/18/20 24 04/18/2024 CMP(C OMPRE HENSI VE METAB OLIC PANEL ) creatinine 0.88 mg/dL 0.60-1 .30 Not Available [facility] (Lab) [address] [facility], [place], [address], 04/19/2024 12:29:50 04/18/20 24 04/18/2024 CMP(C OMPRE HENSI VE METAB OLIC PANEL ) egfrcr (CKD-epi 2020) 82 mL/mi n/1.7 3_m2 >=60 Not Available [facility] (Lab) [address] [facility], [place], [address], 04/19/2024 12:29:50 04/18/20 24 04/18/2024 CMP(C OMPRE HENSI VE METAB OLIC PANEL ) calcium 9.8 mg/dL 8.3-10 .5 Not Available [facility] (Lab) [address] [facility], [place], [address], 04/19/2024 12:29:50 04/18/20 24 04/18/2024 CMP(C OMPRE HENSI VE METAB OLIC PANEL ) glucose 85 mg/dL 70-100 Not Available [facility] (Lab) [address] [facility], [place], [address], 04/19/2024 12:29:50 04/18/20 24 04/18/2024 CMP(C OMPRE HENSI VE METAB OLIC PANEL ) protein, total 7.4 g/dL 6.4-8. 3 Not Available [facility] (Lab) [address] [facility], [place], [address], 04/19/2024 12:29:50 04/18/20 24 04/18/2024 CMP(C OMPRE HENSI VE METAB OLIC PANEL ) albumin 4.7 g/dL 3.5-5. 0 Not Available [facility] (Lab) [address] [facility], [place], [address], 04/19/2024 12:29:50 04/18/20 24 04/18/2024 CMP(C OMPRE HENSI VE METAB OLIC PANEL ) ALT 13 units /L 9-43 Not Available [facility] (Lab) [address] [facility], [place], [address], 04/19/2024 12:29:50 04/18/20 24 04/18/2024 CMP(C OMPRE HENSI VE METAB OLIC PANEL ) alkaline phosphatase 45 units /L 34-104 Not Available [facility] (Lab) [address] [place], [address], 04/19/2024 12:29:50 04/18/20 24 04/18/2024 CMP(C OMPRE HENSI VE METAB OLIC PANEL ) AST 13 units /L 13-39 Not Available [facility] (Lab) [address] [facility], [place], [address], 04/19/2024 12:29:50 04/18/20 24 04/18/2024 CMP(C OMPRE HENSI VE METAB OLIC PANEL ) bilirubin, total 0.6 mg/dL 0.2-1. 2 Not Available [facility] (Lab) [address] [facility], [place], [address], 04/19/2024 12:29:50 04/18/20 24 04/18/2024 TSH, REFLE X FREE T4 TSH 3.25 uIU/m L 0.30-5 .33 Not Available [facility] (Lab) [address] [facility], [place], [address], 04/19/2024 12:29:50 04/18/20 24 04/18/2024 VITAM IN D, 25-OH (TOTA L D2/D3 ) vitamin D, 25-hydroxy, total 24.7 NG/mL 30.0-1 00.0 low Sugge stive of Defic iency : <20 ng/mL Sugge stive of Insuf ficie ncy: 20-29 ng/mL Sugge stive of Suffi cienc y: 30-10 0 ng/mL Sugge stive of Toxic ity: >150 ng/mL Not Available [facility] (Lab) [address] [facility], [place], [address], 04/19/2024 12:29:51 04/18/20 24 04/18/2024 CULTU RE: URINE result report SEE RESULT S BELOW Test: Cultu re: Urine Speci men Sourc e: Urine - Clean Catch Speci men Type: Urine Speci men Date: 2023 1703 Resul t Date: 2023 0613 Resul t Statu s: Final resul t Abnor mal: No Resul ting Lab: [facility] [address] [facility] [address] Tel: CULTU RE ----- ----- ----- --- No growt h in 1 day (dete ction level of 10,00 0 colon ies / ml.) Not Available [facility] (Lab) [address] [facility], [place], [address], 04/25/2024 16:03:23 04/18/20 04/18/2024 IMAGE GUIDE D PAP AND HPV REGAR DLESS image guided Pap, HPV regardless of Pap result SEE RESULT S BELOW CASE REPOR T: Cytol ogy Gynec ologi isidro Repor t Case: [id number] Autho pranav montalvo Provi katie: Meaghan Swenson MD Colle cted: 04/18 1703 Order ing Locat ion: [place] [facility] Recei betty: 04/19 1020 First Scree n: Teresa Obrien, CT Speci men: Lyudmila oconnell Pap - Image d, Cervi x STATE MENT OF ADEQU ACY: Satis facto ry for evalu ation Trans forma tion zone compo nent absen t ----- ----- ----- ----- ----- ----- ----- ----- ----- ----- ----- ----- ----- ----- ----- ----- ----- ---- FINAL DIAGN OSIS: Negat mckenzie for Intra epith elial Lesfestus rivero or Yasmeen cole (NIL) . Elect katy campos by Teresa Obrien, CT on 2023 at 2:59 PM ----- ----- ----- ----- ----- ----- ----- ----- ----- ----- ----- ----- ----- ----- ----- ----- ----- ---- HPV RESUL TS: HPV mRNA E6/E7 : No HPV mRNA Detec fozia NOTE: This high risk HPV mRNA assay detec ts fourt een high- risk HPV types (16, 18, 31, 33, 35, 39, 45, 51, 52, 56, 58, 59, 66, 68) witho ut diffe renti ation . COMME NT: This speci men was revie wed by a Cytot echno logis t and/o r Patho logis t (as indic ated in this repor t) after evalu ation using the Thinp rep Imagi ng Syste m. CLINI ISIDRO INFOR MATIO N: Menst rual Statu s: LMP (if appli cable ): Clini isidro Histo ry/Pr eviou s Pap: Type of Neopl susi (if appli cable ): Signi fican t Clini isidro Findi ngs: Other Histo ry: Hormo winnie (if appli cable ): PAP EDUCA BEV L NOTE: The Pap Test is a scree anish test with an inher ent false negat mckenzie rate. Liqui d-bas ed sampl ing may decre ase, but will not elimi halina, false negat mckenzie resul ts. A negat mckenzie resul t does not precl ude the prese nce and/o r devel opmen t of disea se, since the prese nce of abnor mal cells in the sampl e depen ds on the locat ion of the lesio n and sampl ing techn ique. Ramon nued regul ar scree anish is the best metho d of cance r preve ntion . If repor fozia cytol ogic findi ng do not corre late with physi isidro and/o r histo rical findi ngs, furth er inves tigat ion is recom annette d, as clini fay ca nted. Not Available [facility] (Lab) [address] [facility], [place], [address], 04/25/2024 16:03:23 04/23/20 24 04/23/2024 CT, abdom en + pelvi s, w/ contr ast No observ ation record ed. [place] [id number] [facility] [address] [place] [address], [address], 04/24/2024 10:53:35 10/23/19 25 10/22/2024 MAMMO , scree anish, bilat eral No observ ation record ed. [facility] [address] [facility] [address], [place], [address], 10/22/2024 16:27:31 Result Notes None recorded. Procedures Surgical History Date Name Laterality Status Provider Name and Address Organization Details Recorded Time 4 Date of Last Pap Smear completed Jodi Chun [facility] 06/17/2024 17:33:50 2 IUD Removal completed Sandrita Pantoja, [facility] [address], [place], [address], [facility] 08/11/2021 14:28:25 LEEP completed [facility] 08/10/2021 21:33:15 biopsy of breast completed [facility] 08/10/2021 21:33:27 Other completed [facility] 08/11/2021 14:02:41 Breast Biopsy completed [facility] 08/11/2021 14:02:41 Imaging Results Imaging Date Name Status LastModified by Organiz ation Details LastModified Time 04/23/2024 CT, abdomen + pelvis, w/ contrast completed [address] [place] [address], [address], 04/24/2024 10:53:35 10/22/2024 MAMMO, screening, bilateral active [address] [place] [address], [address], 10/22/2024 16:27:31 Procedure Notes None recorded. Medical Equipment None Reported. Allergies No known drug allergies Medications Name Sig Start Date Stop Date Status Note LastModified by Organization Details LastModified Time cyclobenzap rine 10 mg tablet Take 1 tablet 3 times a day by oral route. 04/17 completed Not Available Not Available Not Available sumatriptan 50 mg tablet TAKE 1 TABLET BY MOUTH TWICE DAILY NEEDED FOR MIGRAINE, MAX 4 TABS/24 HOURS 12/15 completed Not Available Not Available Not Available sulfamethox azole 800 mg-trimetho prim 160 mg tablet TAKE 1 TABLET BY MOUTH EVERY 12 HOURS active Not Available Not Available No t Available tramadol 50 mg tablet TAKE 1 TABLET BY MOUTH EVERY 6 HOURS NEEDED FOR PAIN 04/17 completed Not Available Not Available Not Available amoxicillin 875 mg tablet 08/10 completed Not Available Not Available Not Available hydrocodone 7.5 mg-acetamin ophen 325 mg tablet 08/10 completed Not Available Not Available Not Available triamcinolo ne acetonide 0.1 % topical ointment APPLY A THIN LAYER TO THE AFFECTED AREA(S) BY TOPICAL ROUTE 2 TIMES PER DAY x 7 days prn 04/17 completed Not Available Not Available Not Available naproxen 500 mg tablet TAKE 1 TABLET BY MOUTH TWICE A DAY 04/17 completed Not Available Not Available Not Available tobramycin 0.3 %-dexametha sone 0.1 % eye drops,suspe nsion 04/18 completed Not Available Not Available Not Available cyclobenzap rine 5 mg tablet TAKE 1 TABLET 3 TIMES A DAY BY ORAL ROUTE. 04/17 completed Not Available Not Available Not Available nitrofurant oin monohydrate /macrocryst als 100 mg capsule 08/10 completed Not Available Not Available Not Available cholecalcif jeevan (vitamin D3) 1,250 mcg (50,000 unit) capsule Take 1 capsule by oral route on the same day each week 04/17 completed Not Available Not Available Not Available Slynd 4 mg (28) tablet Take 1 tablet every day by oral route with meals for 90 days. 04/17 completed Not Available Not Available Not Available Ubrelvy 100 mg tablet TAKE 1 TABLET BY MOUTH AT ONSET OF MIGRAINE, AND MAY REPEAT IN 2 HOURS IF NEEDED. 04/17 completed Not Available Not Available Not Available Vitals Date Recorded Body height Body mass index (BMI) Body weight Systolic blood pressure Diastolic blood pressure Provider Name and Address Organization Details Last Updated DateTime 08/11/2021 156.21 cm 29.2 kg/m2 76434 g 120 mm[Hg] 70 mm[Hg] Jennyfer [facility] 14:02:15 Date Recorded Body height Body mass index (BMI) Body weight Systolic blood pressure Diastolic blood pressure Provider Name and Address Organization Details Last Updated DateTime 09/10/2021 156.21 cm 30.3 kg/m2 73814.56 g 120 mm[Hg] 74 mm[Hg] Jennyfer Guerrero [facility] 2 16:04:56 Date Recorded Body height Body mass index (BMI) Body weight Provider Name and Address Organization Details Last Updated DateTime 12/15/2021 156.21 cm 29.9 kg/m2 53622.37 g Jennyfer Guerrero [facility] 12/15/2021 17:06:28 Date Recorded Systolic blood pressure Diastolic blood pressure Provider Name and Address Organization Details Last Updated DateTime 12/15/2021 124 mm[Hg] 76 mm[Hg] Sandrita Pantoja, [facility] [address], [place], [address], [facility] 12/15/2021 17:19:14 Date Recorded Body height Body mass index (BMI) Body weight Systolic blood pressure Diastolic blood pressure Provider Name and Address Organization Details Last Updated DateTime 04/18/2024 157.48 cm 31.1 kg/m2 15325.7 g 118 mm[Hg] 78 mm[Hg] Jodi [facility] 4 17:05:44 Date Recorded Body height Body mass index (BMI) Body weight Systolic blood pressure Diastolic blood pressure Provider Name and Address Organization Details Last Updated DateTime 06/17/2024 157.48 cm 32 kg/m2 32261.66 g 106 mm[Hg] 73 mm[Hg] Jodi [facility] 4 17:33:30 Social History Question Answer Notes LastModified by Organizat ion Details LastModified Time Do You Have An Advance Directive? No Information not available 08/11/2021 What Is Your Level Of Alcohol Consumption? Occasional Information not available 08/11/2021 Are You Blind Or Do You Have Difficulty Seeing? No Information not available 08/11/2021 What Is Your Level Of Caffeine Consumption? Occasional Information not available 08/11/2021 How Much Tobacco Do You Chew? None Information not available 08/11/2021 In The 14 Days Before Symptom Onset, Have You Had Close Contact With A Laboratory-confir med COVID-19 While That Case Was Ill? No Information not available 08/11/2021 In The 14 Days Before Symptom Onset, Have You Had Close Contact With A Person Who Is Under Investigation For COVID-19 While That Person Was Ill? No Information not available 08/11/2021 Have You Been To An Area Known To Be High Risk For COVID-19? No Information not available 08/11/2021 Are You Deaf Or Do You Have Serious Difficulty Hearing? No Information not available 08/11/2021 What Type Of Diet Are You Following? REGULAR Information not available 08/11/2021 What Is The Highest Grade Or Level Of School You Have Completed Or The Highest Degree You Have Received? 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 No Information not available 08/11/2021 Do You Use Protection During Sex? No Information not available 08/11/2021 Do You Use Your Seat Belt Or Car Seat Routinely? Yes Information not available 08/11/2021 Do You Have Smoke And Carbon Monoxide Detectors In Your Home? Yes Information not available 08/11/2021 How Much Tobacco Do You Smoke? No Information not available 08/11/2021 Do You Feel Stressed (tense, Restless, Nervous, Or Anxious, Or Unable To Sleep At Night)? [id number] Information not available 08/11/2021 Do You Use Any Illicit Or Recreational Drugs? No Information not available 08/11/2021 Do You Use Sunscreen Routinely? Yes Information not available 08/11/2021 Have You Used IV Drugs? No Information not available 08/11/2021 Sex: Unknown Functional Status Question Answer Note LastModified by Organizat ion Details LastModified Time Do you have difficulty walking or climbing stairs? No Information not available 12/15/2021 Are you able to walk? YESWOREST Information not available 08/11/2021 Are you able to care for yourself? Yes Information not available 12/15/2021 Do you have difficulty dressing or bathing? No Information not available 12/15/2021 What is your exercise level? Occasional Information not available 08/11/2021 Mental Status None recorded. Family History Relationship Description Onset Age of this Age Resolved Age Notes LastModified by Organization Details LastModified Time Son Asthma Not available 12/2021 14:02:28 Mother Asthma Not available 12/2021 14:02:28 Brother Asthma Not available 14:02:28 Daughter Asthma Not available 0 08/11/2021 14:02:28 Sister Asthma Not available 12/2021 14:02:28 Medical History Condition Response Anesthesia Complications Y Other Y Headaches Y Asthma Y Gynecological History Statement/Question Response Abnormal Pap N Date of Last Mammogram Flow Moderate Date of LMP 06/09/2024 On BCP's at Conception? N N Was last menstrual period normal Y STIs/STDs N HPV Vaccine N Duration of Flow (days) 3 Current Control Method None Age at First Child 18 Are cycles usually normal Y Frequency of Cycle (Q days) 26 Sexually Active? Y Menses Monthly Y Age of first menstrual cycle 12 Date of Last Pap Smear 04/18/2024 Sexual Problems? N LMP Definite N Obstetrics History GPAL:G 6 P 0 0 0 6 Type Value Living 6 Total 6 Past Encounters Encounter ID Performer Location Encounter Start Date Encounter Closed Date Diagnosis/Indication Diagnosis SNOMED-CT Code Diagnosis ICD10 Code Diagnosis Note [id number] MARIANNA [facility] [address] [address] 08/11/2021 13:32:01 08/11/2021 14:42:18 Gynecologic examination 19329798 Z01.419 Suggested Calcium with Vitamin D 1200-1500m g daily. Patient advised to get an annual flu shot in the fall and she could obtain at [facility] or [facility] care clinic. Also to obtain TDap vaccinatio n if you have not had one in the last 10 years. Recommend yearly mammograms . Encouraged monthly self breast exams. Encourage safe sexual practices, to use condoms and limit partners if not already in a monogamous relationsh ip. Engage in daily exercise of low impact aerobic exercise 45-60 minutes 4-5 times weekly. Avoid tobacco and illicit drugs as well as using moderation with alcohol intake less than 1-2 8 oz beverages daily. This lifestyle behavior pattern will lead to less health conditions and longer life span. If BMI greater than 25 weight watchers or dietary consult advised. All questions have been answered. Patient appears to understand informatio n, but if you have any questions please call or respond to this email. Pap/hpv/ST D [facility] discussed Screening mammography 24 554001 Z12.31 Adult heal th examination 290604079 Z00.00 Skin irritation 82418610 7 L30.9 Small amount of ext skin vulvar irritation lower left side bottom of labia majora/per ineal area.Also instructed to apply daily vegetable based moisturize r. Removal of intrauterine device 93612199 Z30.432 She states the symptoms are of new onset. Patient is here due to the approachin g due date or the nature of her IUD and wishes to have it removed. We discussed the timing of the replacemen t with the next bleed or the need to abstain if she no longer has regular cycles. She expressed understand ing. It was explained that she may have bleeding or spotting after the removal of the device today as well. If cannot see the strings of this device we will need to get an US image to make that the device is still in place and not in an unobtainab le position. She expressed understand ing of all the above instructio ns. Will let us know if would like alternativ e other than condoms. [id number] Sandrita Pantoja , [facility] [address] [address] 09/10/2021 15:47:36 09/10/2021 16:38:39 Contraception care management 136633197 Z30.9 IUD removed earlier this year.Wants to use pills.Hx warrants progestero ne only options are best. Discussed all control options in great detail. Pt would like to start POP. She is aware of the risks and benefits. She has contraindi cations to use of OCP or other estrogen containing hormonal therapy. Pt will start her pills on the first monday following the start of her period. She is aware it is not effective for control the first month. She is also aware of the importance of taking at the same time every day. Encouraged use of condoms as the pill does not protect against STD's. Will return in 3 months for med check. Consent was read and signed. Pt verbalized understand ing. RTO x 2.5-3mos med check Time spent in visit is a total of 15 mins with at least 50% of visit consisting of counseling and review of plan of care.Addit ional precaution philly measures were taken to minimize potential exposure to the Covid-19 virus during this patient s visit, including available hand business representative upon arrive, temperatur e check and being asked a series of screening questions. All staff wore face coverings during this encounter, as well as provided additional cleaning and sanitizing of all surfaces, including countertop s, pens, chairs, door handles, light switches, etc, prior to and following the patient s visit. test negative [id number] Z32.02 Neg [id number] MARIANNA Sanders[facility] [address] [address] 12/15/2021 16:54:43 12/15/2021 17:25:42 Contraception care management 476463281 Z30.9 Patient is here today for a medicaton check of control. She voices goals of therapy have been met with use of this therapy. She denies neg side effects. She is eating, drinking, sleeping well; moods are stable & periods are well regulated. Wishes to continue this method of BC. Appropriat e to continue this medication .If medication SLYND not covered please call & request samples prior to your running out of this medication . Time spent in visit is a total of 15 mins with at least 50% of visit consisting of counseling and review of plan of care. [id number] Helio Swenson MD [facility] [address] [address] 04/18/2024 16:53:29 04/18/2024 17:43:26 Gynecologic examination 94666250 Z01.419 Annual gynecologi isidro exam performed. Patient will come back in a year unless there are new symptoms. Suggest Calcium with Vitamin D if not eating in diet. Patient advised to get annual flu shot. Recommend yearly physicals and preform monthly breast exams. Genetic testing is available for patients with family history of cancer. Engage in safe sexual practices, use condoms. Encouraged to have daily exercise. Avoid tobacco and illicit drugs, moderation of alcohol. If BMI greater than 25 dietary consult advised. If you have any questions please call or email. mammogram- ordered Pap smear- today laboratory evaluation - today Flank pain.- to get image. CT, hematuria [id number] Helio Swenson MD [facility] [address] [address] 06/17/2024 17:25:37 06/18/2024 06:55:22 Acute cystitis 48375250 N30.01 Left flank pain 97913201 9 R10.9 this patient is a 44-year-ol d female presents for follow-up on flank pain. She has some pain in the area of her left kidney. We obtained a CT of the abdomen and pelvis. There was no evidence of any obstructiv e stone or infection on CT scan at the left kidney. There was some indication of a cystitis. It is also a nephrolith iasis on the right side that appears benign. There was also a small ovarian cyst on the right side. There is no clear indication of where the pain originates in this image. There is pelvic vein dilation. It is more prominent on the left side. Possible correlatio n between this pelvic congestion syndrome and this pain. Not typical pain for pelvic congestion syndrome but maybe a variant. To treat for cystitis. Discussed pelvic congestion syndrome in detail. Talked about the urology consult that was previously arranged. She is going to contact [facility] [place]. I spent over 30 minutes with the patient. She will follow-up as needed at this point. Health Concerns Section Related Observation LastModified by Organization Detai ls LastModified Time None Recorded Concern Status LastModified by Organization Details LastModified Time None Recorded Advance Directives Directive N: Payers Encounter Date Sequence Insurance Name Policy Number Policy Laura Covered Member ID Laura Member ID Guarantor Name 08/11/2021 1 [place] [id number] Rocio Rao [id number] Rocio Rao 09/10/2021 1 [place] [id number] Rocio Rao [id number] Rocio Rao 12/15/2021 1 [place] [id number] Rocio Rao [id number] Rocio Rao 04/18/2024 1 [place] [id number] Rocio Rao [id number] Rocio Rao 06/17/2024 1 [place] [id number] Rocio Rao [id number] Rocio Rao Notes Date Note Type Note Provider Name and Address Organization Details Recorded Time 08/11/2021 text/html Annual GYNReport ed bypatient.Menstrual cycle:Normal menses (Amenorrheic with Mirena IUD placed in 2015.) Urinary symptoms:No hematuria; No incontinence Vulva:No genital lesion; Skin irritation lower left side Vagina:Normal vaginal discharge Breast:No breast pain; No breast lump; No nipple discharge Current Contraception:[place] mous relationship; Intrauterine device (iud) (Wants device removed today. Would like to give her body a break to reset.); Requests testing for sexually transmitted infections Sexual complaints:No sexual complaints; No pain during intercourse; Normal libido Menopausal Symptoms:No menopausal symptoms; Normal vaginal lubrication Psychological symptoms:No depression; No anxiety; No PMDD Preventive measures:Encourage self breast examination; Encourage regular exercise; Encourage no tobacco use; Encourage regular mammograms starting age 40; History of abnormal pap smear/cervical dysplasia; Needs to schedule mammogram Sandrita Pantoja [facility] [address], [place], [address], [facility] 08/11/2021 14:28:42 09/10/2021 text/html Here today to discuss contraception. MARTIN Sanders [address], [place], [address], [facility] 09/10/2021 16:35:18 12/15/2021 text/html Here today for medication check. Sandrita Pantoja RIA [address], [place], [address], [facility] 12/15/2021 17:20:00 04/18/2024 text/html Annual GYNReport ed bypatient.History:no gynecologic complaints Menstrual cycle:Normal menses Urinary symptoms:No hematuria; No incontinence Vulva:No genital lesion Vagina:Normal vaginal discharge Breast:No breast pain; No breast lump Current Contraception:Satisf ied with current contraception Sexual complaints:No sexual complaints; No pain during intercourse Menopausal Symptoms:No menopausal symptoms Psychological symptoms:No depression; No anxiety (not treated) Preventive measures:Encourage self breast examination; Encourage regular exercise Helio Swenson MD [address], [place], [address], [facility] 04/18/2024 17:40:16 06/17/2024 text/html this patient is a 44-year-old female presents for follow-up on flank pain. She has some pain in the area of her left kidney. We obtained a CT of the abdomen and pelvis. There was no evidence of any obstructive stone or infection on CT scan at the left kidney. There was some indication of a cystitis. It is also a nephrolithiasis on the right side that appears benign. There was also a small ovarian cyst on the right side. There is no clear indication of where the pain originates in this image. There is pelvic vein dilation. It is more prominent on the left side. Possible correlation between this pelvic congestion syndrome and this pain. Not typical pain for pelvic congestion syndrome but maybe a variant. To treat for cystitis. Discussed pelvic congestion syndrome in detail. Talked about the urology consult that was previously arranged. She is going to contact [facility] [place]. I spent over 30 minutes with the patient. She will follow-up as needed at this point. Helio Swenson MD [address], [place], [address], [facility] 06/17/2024 18:13:25 OBGyn Episode Ob Episode Information Episode Created Date Number of Fetuses Patient Bloodtype Patient rh Status Prepregnancy Weight lbs Domestic Partner Domestic Partner Phone Father Name Summer Sessions Director Status 08/10/19 22 1 CLOSED Fetus Data First Name Last Name Admitted to NICU Weight (g) Sex Living Outcome Pediatric Complications Fetus ID Race Codes Race Delivery Type F [id number] Vaginal Delivery Cuco Calculation Initial Cuco Date Initial Exam Date Initial Exam Provider Initial Ultrasound Date Last Menstrual Period Date Ultra Sound Weeks Gestation 0 Eighteen To Twenty Week Cuco Update Ultra Sound Date Fundal Height At Umbil Quickening Date Ultra Sound Latest Weeks Gestation Final Cuco Confirmed By Final Cuco Confirmed Date Final Cuco Date Ultra Sound Latest Days Gestation 0 0 Menstrual History Last Menstrual Date Menses Monthly On Bcp Conception Prior Menses Frequency Hcg Plus Date Menarche Onset Age Delivery Information Delivery Date Delivery Type Labor Anesthesia Weeks Gestation Incision Type Labor Labor Length Hrs Delivered By Post Complications Tubal Sterilization Discharge Date Comments 9 Discharge Information Feeding Method Contraceptive Method Maternal HG B and HCT Levels Ob Episode Information Episode Created Date Number of Fetuses Patient Bloodtype Patient rh Status Prepregnancy Weight lbs Domestic Partner Domestic Partner Phone Father Name Summer Sessions Director Status 08/11/19 22 1 CLOSED Fetus Data First Name Last Name Admitted to NICU Weight (g) Sex Living Outcome Pediatric Complications Fetus ID Race Codes Race Delivery Type M [id number] Vaginal Delivery Cuco Calculation Initial Cuco Date Initial Exam Date Initial Exam Provider Initial Ultrasound Date Last Menstrual Period Date Ultra Sound Weeks Gestation 0 Eighteen To Twenty Week Cuco Update Ultra Sound Date Fundal Height At Umbil Quickening Date Ultra Sound Latest Weeks Gestation Final Cuco Confirmed By Final Cuco Confirmed Date Final Cuco Date Ultra Sound Latest Days Gestation 0 0 Menstrual History Last Menstrual Date Menses Monthly On Bcp Conception Prior Menses Frequency Hcg Plus Date Menarche Onset Age Delivery Information Delivery Date Delivery Type Labor Anesthesia Weeks Gestation Incision Type Labor Labor Length Hrs Delivered By Post Complications Tubal Sterilization Discharge Date Comments 0 Discharge Information Feeding Method Contraceptive Method Maternal HG B and HCT Levels Ob Episode Information Episode Created Date Number of Fetuses Patient Bloodtype Patient rh Status Prepregnancy Weight lbs Domestic Partner Domestic Partner Phone Father Name Summer Sessions Director Status 08/11/19 22 1 CLOSED Fetus Data First Name Last Name Admitted to NICU Weight (g) Sex Living Outcome Pediatric Complications Fetus ID Race Codes Race Delivery Type M [id number] Vaginal Delivery Cuco Calculation Initial Cuco Date Initial Exam Date Initial Exam Provider Initial Ultrasound Date Last Menstrual Period Date Ultra Sound Weeks Gestation 0 Eighteen To Twenty Week Cuco Update Ultra Sound Date Fundal Height At Umbil Quickening Date Ultra Sound Latest Weeks Gestation Final Cuco Confirmed By Final Cuco Confirmed Date Final Cuco Date Ultra Sound Latest Days Gestation 0 0 Menstrual History Last Menstrual Date Menses Monthly On Bcp Conception Prior Menses Frequency Hcg Plus Date Menarche Onset Age Delivery Information Delivery Date Delivery Type Labor Anesthesia Weeks Gestation Incision Type Labor Labor Length Hrs Delivered By Post Complications Tubal Sterilization Discharge Date Comments 3 Discharge Information Feeding Method Contraceptive Method Maternal HG B and HCT Levels Ob Episode Information Episode Created Date Number of Fetuses Patient Bloodtype Patient rh Status Prepregnancy Weight lbs Domestic Partner Domestic Partner Phone Father Name Summer Sessions Director Status 08/10/19 22 1 CLOSED Fetus Data First Name Last Name Admitted to NICU Weight (g) Sex Living Outcome Pediatric Complications Fetus ID Race Codes Race Delivery Type M [id number] Vaginal Delivery Cuco Calculation Initial Cuco Date Initial Exam Date Initial Exam Provider Initial Ultrasound Date Last Menstrual Period Date Ultra Sound Weeks Gestation 0 Eighteen To Twenty Week Cuco Update Ultra Sound Date Fundal Height At Umbil Quickening Date Ultra Sound Latest Weeks Gestation Final Cuco Confirmed By Final Cuco Confirmed Date Final Cuco Date Ultra Sound Latest Days Gestation 0 0 Menstrual History Last Menstrual Date Menses Monthly On Bcp Conception Prior Menses Frequency Hcg Plus Date Menarche Onset Age Delivery Information Delivery Date Delivery Type Labor Anesthesia Weeks Gestation Incision Type Labor Labor Length Hrs Delivered By Post Complications Tubal Sterilization Discharge Date Comments 0 Discharge Information Feeding Method Contraceptive Method Maternal HG B and HCT Levels Ob Episode Information Episode Created Date Number of Fetuses Patient Bloodtype Patient rh Status Prepregnancy Weight lbs Domestic Partner Domestic Partner Phone Father Name Summer Sessions Director Status 08/10/19 22 1 CLOSED Fetus Data First Name Last Name Admitted to NICU Weight (g) Sex Living Outcome Pediatric Complications Fetus ID Race Codes Race Delivery Type F [id number] Vaginal Delivery Cuco Calculation Initial Cuco Date Initial Exam Date Initial Exam Provider Initial Ultrasound Date Last Menstrual Period Date Ultra Sound Weeks Gestation 0 Eighteen To Twenty Week Cuco Update Ultra Sound Date Fundal Height At Umbil Quickening Date Ultra Sound Latest Weeks Gestation Final Cuco Confirmed By Final Cuco Confirmed Date Final Cuco Date Ultra Sound Latest Days Gestation 0 0 Menstrual History Last Menstrual Date Menses Monthly On Bcp Conception Prior Menses Frequency Hcg Plus Date Menarche Onset Age Delivery Information Delivery Date Delivery Type Labor Anesthesia Weeks Gestation Incision Type Labor Labor Length Hrs Delivered By Post Complications Tubal Sterilization Discharge Date Comments 2 Discharge Information Feeding Method Contraceptive Method Maternal HG B and HCT Levels
--- OUTSIDE RECORDS SUMMARY | 2024-10-22 16:51 | XMS_ITS ---
Care Plan - [facility] Created on: October 22, 2024 HIEN MUSA : 1980 Sex: Female Author Organization [facility] Address [address] [place] [address] Phone Care Team Providers Care Corporate Fitness Program Coordinator Name Role Phone BAN BAKER MD Primary Care Provider [phone] LEANA PEÑA DO [phone]
--- OUTSIDE RECORDS SUMMARY | 2024-10-22 16:51 | XMS_ITS | Clinical Summary ---
Author Organization [facility] Address [address] [place] [address] Care Team Providers Care Pyridine Operator Name Role Phone Ho Soni MD Primary Care Provider [phone] Allergies No known active allergies Medications cyclobenzaprine 5 MG tablet TAKE 1 TABLET 3 TIMES A DAY BY ORAL ROUTE. 12/15/2021 Active naproxen 500 MG tablet Take 500 mg by mouth 2 (two) times daily. 12/15/2021 Active ubrogepant (UBRELVY) 100 MG tablet Ubrelvy 100 mg tablet TAKE 1 TABLET BY MOUTH AT ONSET OF MIGRAINE, AND MAY REPEAT IN 2 HOURS IF NEEDED. Active traMADol 50 MG tabletIndicatio ns:Acute Pain < 3 Day Supply Take 1 tablet (50 mg total) by mouth every 6 (six) hours as needed for Pain. Indications: Acute Pain < 3 Day Supply 10 tablet 12/20/2021 Active Social History Tobacco Use Types Packs/Day Years Used Date Smoking Tobacco: Never Smokeless Tobacco: Never Comments No Sex and Gender Information Value Date Recorded Sex Assigned at Not on file Legal Sex Female 10:57 AM CDT Gender Identity Not on file Sexual Orientation Not on file Last Filed Vital Signs Vital Sign Reading Time Taken Comments Blood Pressure 137/88 12/20/2021 10:06 AM CDT Pulse 92 12/20/2021 11:44 AM CDT Temperature 37.6 C (99.7 F) 12/20/2021 10:02 AM CDT Respiratory Rate 18 12/20/2021 10:02 AM CDT Oxygen Saturation 100% 12/20/2021 10:02 AM CDT Inhaled Oxygen Concentration - - Weight 73 kg (161 lb) 12/20/2021 10:02 AM CDT Height 157.5 cm (5' 2 ) 12/20/2021 10:02 AM CDT Body Mass Index 29.45 12/20/2021 10:02 AM CDT Plan of Treatment Health Maintenance Due Date Last Done Comments Colorectal Cancer Screening Colonoscopy (10 Years) 1978 Annual Physical 1981 Hepatitis C 1996 DTaP, Tdap and Td Vaccines ( 1 - Tdap) 1997 Hepatitis B Vaccines (1 of 3 - 19+ 3-dose series) 1997 Mammogram Screening 2018 COVID-19 Vaccine (2023-2 5 season) 2024 Influenza Adult (#1) 2024 Cervical Cancer Screening Pa p Smear (Age 30 to 64) Every 3 Years 08/11/2024 08/11/2021, 08/11/2021, 08/11/2021 Cervical Cancer Screening Pa p with HPV Testing (Age 30 to 64) Every 5 Years 08/11/2026 08/11/2021 Cervical Cancer Screening wi th HPV 08/11/2026 Meningococcal B Vaccine Aged Out No l onger eligible based on patient's age to complete this topic Meningococcal Vaccine Aged Out No liam alvina eligible based on patient's age to complete this topic Pneumococcal Vaccine: Pediatrics (0 to 5 Years) and At-Risk Patients (6 to 64 Years) Aged Out No longer eligible b ased on patient's age to complete this topic RSV Immunizations Under 20 Months Aged Out No longer eligible b ased on patient's age to complete this topic Insurance [facility] Care Teams Pyridine Operator Relationship Specialty Start Date End Date Ho Soni MD PCP - General INTERNAL MEDICINE 12/20/21
== END 2024-10-22 14:55 | disposition home or self-care (01) ==
LOC: ANHIMG 14:55
PROVIDERS: PCP Internal Medicine; Visit Provider Obstetrics & Gynecology
DX: Z12.31 Encounter for screening mammogram for malignant neoplasm of breast (principal); N64.89 Other specified disorders of breast
CPT/HCPCS: 77063; 77067